=== PATIENT | female | born 1950 | race Caucasian/White ===

== ENCOUNTER 2024-02-25 12:46 | Emergency (ER) | payer BC, SELFPAY ==
[2024-02-25 12:49] VITALS: BP 152/87
[2024-02-25 14:20] VITALS: BP 133/85
[2024-02-25 14:29] VITALS: BMI 25.8
[2024-02-25 14:30] LABS: % Basophils 0.7 % (0-2); % Eosinophils 2.1 % (0-6); % Immature Granulocytes 0.2 % (0-0.5); % Lymphocytes 18.8 % (20.5-51.1); % Monocytes 10.9 % (1.7-9.3); % Neutrophils 67.3 % (42.2-75.2); Absolute Basophils 0.1 10^3/uL (0-0.2); Absolute Eosinophils 0.2 10^3/uL (0-0.7); Absolute Lymphocytes 1.5 10^3/uL (1.2-3.4); Absolute Monocytes 0.9 10^3/uL (0.1-0.6); Absolute Neutrophils 5.4 10^3/uL (1.4-6.5); Hematocrit 42.5 % (37.0-47.0); Hemoglobin 14.4 g/dL (12.0-16.0); Mean Corp Hgb Conc. 33.9 g/dL (33.0-37.0); Mean Corpuscular Hgb 30.6 pg (27.0-31.0); Mean Corpuscular Volume 90.4 fL (81.0-99.0); Nucleated Red Blood Cells % 0 %; Platelet Count 280 10^3/uL (130-400); Red Cell Dist. Width 13.2 % (11.5-14.5); White Blood Cell Count 8.1 10^3/uL (4.8-10.8)
[2024-02-25 14:45] LABS: D-Dimer 0.77 ug/mlFEU (0.00-0.50)
[2024-02-25 14:48] LABS: ALT (SGPT) 19 U/L (0-35); AST (SGOT) 29 U/L (14-36); Albumin 3.9 g/dl (3.5-5.0); Alkaline Phosphatase 78 U/L (38-126); Blood Urea Nitrogen 17 mg/dl (7-17); Calcium 9.3 mg/dl (8.4-10.2); Carbon Dioxide 26 mmol/L (22-30); Chloride 107 mmol/L (98-107); Estimated Creatinine Clearance 66 ml/min; Glucose 113 mg/dl (70-99); Potassium 4.7 mmol/L (3.5-5.1); Sodium 138 mmol/L (135-145); Total Bilirubin 0.6 mg/dl (0.2-1.3); Total Protein 6.5 g/dl (6.3-8.2); eGFR > 60.00
[2024-02-25 14:58] LABS: Troponin I < 0.012 ng/ml
[2024-02-25 15:00] VITALS: BP 139/75
--- NOTE | 2024-02-25 15:28 | EDRN ---
Hari came back elevated, this RN notified Dr. Krishnamurthy
[2024-02-25 16:37] VITALS: BP 146/77
[2024-02-25 17:06] LABS: Troponin I < 0.012 ng/ml
--- NOTE | 2024-02-25 18:18 | ED.GENMED ---
History of Present Illness
General
Chief Complaint: Musculo-Skeletal Complaint
Source: patient
Time Seen by Provider: 02/25/24 13:26
Travel History
Have you had any contact with someone who has COVID-19?: No
Do you have any symptoms of coronavirus? Fever > 100 degrees, chills, cough, shortness of breath, sore throat, loss of taste or smell, muscle aches, or headache?: No
History of Present Illness
History of Present Illness:
73-year-old female who presents with discomfort across her chest. Pain started yesterday. Feels like her bra is getting tighter. She also some sharp pain in the lower chest midline area as well. She reports that there is pain between her
shoulders as well. No fevers. No palpitations. No motor weakness.
Past History
Past History
ED Past Medical History: Other (Basal cell skin cancer)
ED Past Surgical History:
Phy Exam
Physical Exam
Physical Exam:
CONSTITUTIONAL Patient alert and oriented to person, place and time. Well-appearing. Vital signs reviewed.
HEAD atraumatic, normocephalic.
EYES eyelids normal to inspection, Pupils equally round and reactive to light, Extraocular muscles intact, Conjunctiva normal, Sclera normal.
NECK normal range of motion, Trachea midline, no jugular venous distention.
RESPIRATORY CHEST No respiratory distress noted, Chest expansion equal, Bilateral breath sounds clear.
CARDIOVASCULAR regular rate and rhythm, Heart sounds normal.
ABDOMEN abdomen nontender, Bowel sounds normal. No distention.
BACK normal inspection, no obvious deformities
UPPER EXTREMITY range of motion normal, Motor strength normal, no cyanosis, no edema.
LOWER EXTREMITY range of motion normal, Motor strength normal, no cyanosis, no edema.
NEURO Speech normal, No focal motor deficits, Sree coma scale 15, Memory normal, Cranial Nerves intact to screening exam.
SKIN skin warm, dry, and normal in color.
PSYCHIATRIC patient oriented to person place and time, Normal affect.
Course
Orders/Labs/Results
Orders:
Orders
02/25/24 12:55
Electrocardiogram (*1) Urgent
Reason for Study: Chest Pain
EKG- Treatment ONCE
02/25/24 14:21
Complete Blood Count/With Diff Urgent
Comprehensive Metabolic Panel Urgent
D-Dimer Urgent
Lipase Urgent
Comment: ADD ON
Troponin I Urgent
02/25/24 16:19
CT Chest/abd/pelvis Angio W/wo Urgent
Comment:
Reason For Exam: cp, back pain
02/25/24 16:34
Troponin I Urgent
02/25/24 18:13
Add On- LAB Urgent
Tests Added?: lipase
Abnormal Lab Results
02/25/24
14:21
Absolute Monos (auto) 0.9 H 10^3/uL
(0.1-0.6)
Lymphocytes % 18.8 L %
(20.5-51.1)
Monocytes % 10.9 H %
(1.7-9.3)
D-Dimer 0.77 H ug/mlFEU
(0.00-0.50)
Glucose 113 H mg/dl
(70-99)
02/25/24 14:21
02/25/24 14:21
Vital Signs
Initial and Last Documented VS:
Initial Vital Signs
Temp Pulse Resp BP Pulse Ox
98.2 F 89 16 152/87 96
02/25/24 12:49 02/25/24 12:49 02/25/24 12:49 02/25/24 12:49 02/25/24 12:49
Last Documented Vital Signs
Temp Pulse Resp BP Pulse Ox
98.1 F 62 16 136/72 99
02/25/24 18:31 02/25/24 18:31 02/25/24 18:31 02/25/24 18:31 02/25/24 18:31
*Critical Care Note
Total Time (30-74mins, 75-104mins- exclusive of procedures): Not Applicable
ED Attending Note
-
Portions of this chart may have been created with voice recognition software.� Occasional wrong word or��sound alike� substitutions may have occurred due to the inherent limitations of voice recognition software.
Discharge Plan
Departure
Patient Disposition: Home (Routine Discharge)
Date of Disposition: 02/25/24
Time of Disposition: 18:18
Patient with high blood pressure during this ER visit?: No
Discharge Problem:
Chest pain
Instructions: Chest Pain DCA Follow Up
Prescriptions:
No Action
No Current Medications
0
Referrals:
Chen Chan MD [Family Provider] -
Activity Restrictions/Additional Instructions:
Please avoid strenuous or exertional activity until cleared by cardiology. Please see cardiology in the next 48 hours for reevaluation. Return immediately for worsening pain, shortness breath, palpitations, sweating, nausea, weakness of any kind,
numbness, tingling or any other concerns.
Cardiology has been notified and a follow up appointment has been requested. Someone will call you on the next business day to schedule a follow up appointment.
Interventions
Interventions:
*Risk Screen - Suicide Last Done: 02/25/24 12:49
*General Assessment Last Done: 02/25/24 14:29
*Neglect/Abuse Screening Last Done: 02/25/24 12:55
ED- Fall Risk Assessment Last Done: 02/25/24 14:29
*ED COVID-19 Vaccine History Last Done: 02/25/24 14:29
*Nursing Disposition Last Done: 02/25/24 18:31
ED-Musculoskeletal Assessment Last Done: 02/25/24 14:29
Discharge Date and Time
Discharge Date/Time: 02/25/24 18:32
Print Language: [id number]
[2024-02-25 18:31] VITALS: BP 136/72
[2024-02-25 18:52] LABS: Lipase 107 U/L (23-300)
== END 2024-02-25 18:32 | disposition home or self-care (01) ==
LOC: EMR 12:46
PROVIDERS: EMERGENCY PHYSICIAN Emergency Medicine; FAMILY PHYSICIAN Internal Medicine
DX: R07.89 Other chest pain (principal)
CPT/HCPCS: 99285; 71275; 74174; 80053; 83690; 84484; 85025; 85379; 93005; Q9967

== ENCOUNTER → 2024-06-28 11:09 | Outpatient (REF) | payer OTHER, SELFPAY | LOC: RCS 11:09 | PROVIDERS: ATTENDING PHYSICIAN Internal Medicine Cardiovascular Disease; FAMILY PHYSICIAN Internal Medicine | DX: R07.89 Other chest pain (principal); I70.90 Unspecified atherosclerosis | CPT/HCPCS: 93306 ==

== ENCOUNTER → 2024-06-30 12:29 | Outpatient (REF) | payer OTHER, SELFPAY | LOC: RCS 12:29 | PROVIDERS: ATTENDING PHYSICIAN Internal Medicine Cardiovascular Disease; FAMILY PHYSICIAN Internal Medicine | DX: R07.89 Other chest pain (principal); I70.90 Unspecified atherosclerosis | CPT/HCPCS: 93017; 93350 ==

== ENCOUNTER → 2024-10-09 12:27 | Outpatient (REF) | payer OTHER, SELFPAY | LOC: HWWDC 12:27 | PROVIDERS: ATTENDING PHYSICIAN Nurse Practitioner; FAMILY PHYSICIAN Internal Medicine | DX: Z12.31 Encounter for screening mammogram for malignant neoplasm of breast (principal) | CPT/HCPCS: 77063; 77067 ==

== ENCOUNTER → 2025-07-26 10:36 | Outpatient (REF) | payer OTHER, SELFPAY | LOC: HWRAD 10:36 | PROVIDERS: ATTENDING PHYSICIAN Nurse Practitioner | DX: N20.0 Calculus of kidney (principal) | CPT/HCPCS: 76770 ==